=== PATIENT | female | born 1940 | race Hispanic/Latino ===

== ENCOUNTER 2016-12-28 15:04 | Emergency (ER) | payer MEDICARE ==
[~2016-12-28] VITALS: Ht 160 cm; Wt 45.0 kg
[~2016-12-28 15:04] MED LIST: AMOXICILLIN500 M1 OR; AMOXICILLIN500 MG OR; AMOXICILLIN500 MG PO; B COMPLE2 PO; BACTRIM DS1 TAB PO; CEPHALEXIN500 MG PO; CIPROFLOXACN500 MG PO; CORTISPORIN OTI10 ML OT; FLEXERIL OR; GABAPENTIN300 MG PO; GLIPIZIDE10 MG PO; HYDROCHLOROT25 MG PO; JANUVIA100 MG PO; LANTUS100 MG/ML SC; LISINOPRIL10 MG PO; LORATADINE10 M1 PO; LORTAB 5/3255 MG PO; LORTAB 7.5 PO; METFORMIN500 MG PO; NAPROSYN500 MG OR; NAPROSYN500 MG PO; NO MEDS; NOVOLIN R SC; PREVACID30 M2 PO; SERTRALINE25 MG PO; TRAMADOL HCL50 MG PO; TYLENOL # 31 TAB OR; ULTRAM50 M1 PO; ZITHROMAX250 MG PO; ZOFRAN ODT4 MG PO
[2016-12-28] MEDS ORDERED: ZITHROMAX250 MG PO (15:44)
[2016-12-28] MEDS ORDERED: TESSALON PER100 MG PO (15:44)
[2016-12-28 15:49] VITALS: BP 104/57
== END 2016-12-28 15:58 | disposition home or self-care (01) ==
LOC: ED 15:04
DX: J02.9 Acute pharyngitis, unspecified (principal); R05 Cough